=== PATIENT | female | born 1975 | race Caucasian/White ===

== ENCOUNTER 2017-08-31 08:36 | Outpatient (CLI) | payer OTHER | END 2017-08-31 09:30 | disposition home or self-care (01) | LOC: LAB 08:36 | DX: R59.1 Generalized enlarged lymph nodes (principal); E04.8 Other specified nontoxic goiter; Z12.39 Encounter for other screening for malignant neoplasm of breast; Z80.3 Family history of malignant neoplasm of breast; D50.8 Other iron deficiency anemias; D51.8 Other vitamin B12 deficiency anemias; I10 Essential (primary) hypertension; D51.0 Vitamin B12 deficiency anemia due to intrinsic factor deficiency; D51.1 Vitamin B12 deficiency anemia due to selective vitamin B12 malabsorption with proteinuria; E03.8 Other specified hypothyroidism; E06.3 Autoimmune thyroiditis; R97.0 Elevated carcinoembryonic antigen [CEA]; R97.8 Other abnormal tumor markers; B20 Human immunodeficiency virus [HIV] disease; B18.8 Other chronic viral hepatitis; B27.89 Other infectious mononucleosis with other complication; N63.11 Unspecified lump in the right breast, upper outer quadrant; N63.12 Unspecified lump in the right breast, upper inner quadrant ==

== ENCOUNTER 2017-10-26 10:41 | Outpatient (CLI) | payer OTHER | END 2017-10-26 10:50 | disposition home or self-care (01) | LOC: SONOGRAMA 10:41 | DX: E04.2 Nontoxic multinodular goiter (principal) ==

== ENCOUNTER 2018-02-17 09:08 | Outpatient (CLI) | payer OTHER | END 2018-02-17 09:31 | disposition home or self-care (01) | LOC: LAB 09:08 | DX: D51.1 Vitamin B12 deficiency anemia due to selective vitamin B12 malabsorption with proteinuria (principal); R59.1 Generalized enlarged lymph nodes; E06.3 Autoimmune thyroiditis; Z12.39 Encounter for other screening for malignant neoplasm of breast; E04.2 Nontoxic multinodular goiter; Z80.3 Family history of malignant neoplasm of breast; E03.8 Other specified hypothyroidism; D50.8 Other iron deficiency anemias; D51.8 Other vitamin B12 deficiency anemias ==

== ENCOUNTER → 2018-05-28 | Outpatient (CLI) | payer OTHER | END | disposition home or self-care (01) | LOC: NUCLEAR 05-21 11:15 | DX: I73.9 Peripheral vascular disease, unspecified (principal); I70.213 Atherosclerosis of native arteries of extremities with intermittent claudication, bilateral legs; D51.1 Vitamin B12 deficiency anemia due to selective vitamin B12 malabsorption with proteinuria; R59.1 Generalized enlarged lymph nodes ==

== ENCOUNTER 2018-06-06 09:04 | Outpatient (CLI) | payer OTHER | END 2018-06-06 09:06 | disposition home or self-care (01) | LOC: SONOGRAMA 09:04 | DX: D51.1 Vitamin B12 deficiency anemia due to selective vitamin B12 malabsorption with proteinuria (principal); R59.1 Generalized enlarged lymph nodes; E06.3 Autoimmune thyroiditis; Z12.39 Encounter for other screening for malignant neoplasm of breast; E04.2 Nontoxic multinodular goiter; Z80.3 Family history of malignant neoplasm of breast; E03.8 Other specified hypothyroidism; K29.70 Gastritis, unspecified, without bleeding; I73.89 Other specified peripheral vascular diseases; I70.213 Atherosclerosis of native arteries of extremities with intermittent claudication, bilateral legs ==

== ENCOUNTER → 2018-06-06 | Outpatient (CLI) | payer OTHER | END | disposition home or self-care (01) | LOC: NUCLEAR 10:05 | DX: I87.2 Venous insufficiency (chronic) (peripheral) (principal); I73.9 Peripheral vascular disease, unspecified; I70.213 Atherosclerosis of native arteries of extremities with intermittent claudication, bilateral legs; D51.1 Vitamin B12 deficiency anemia due to selective vitamin B12 malabsorption with proteinuria; R59.1 Generalized enlarged lymph nodes ==

== ENCOUNTER → 2018-06-14 | Outpatient (CLI) | payer OTHER | END | disposition home or self-care (01) | LOC: SONOGRAMA 12:30 | DX: E04.2 Nontoxic multinodular goiter (principal) ==

== ENCOUNTER 2018-07-04 08:34 | Outpatient (CLI) | payer OTHER | END 2018-07-04 11:32 | disposition home or self-care (01) | LOC: LAB 08:34 | DX: E03.8 Other specified hypothyroidism (principal); D51.1 Vitamin B12 deficiency anemia due to selective vitamin B12 malabsorption with proteinuria; R59.1 Generalized enlarged lymph nodes; E06.3 Autoimmune thyroiditis; Z12.39 Encounter for other screening for malignant neoplasm of breast; E04.2 Nontoxic multinodular goiter; Z80.3 Family history of malignant neoplasm of breast; K29.70 Gastritis, unspecified, without bleeding; I73.89 Other specified peripheral vascular diseases; I70.213 Atherosclerosis of native arteries of extremities with intermittent claudication, bilateral legs; D50.8 Other iron deficiency anemias; D51.8 Other vitamin B12 deficiency anemias; I10 Essential (primary) hypertension ==

== ENCOUNTER 2018-10-12 08:28 | Outpatient (CLI) | payer OTHER | END 2018-10-12 08:38 | disposition home or self-care (01) | LOC: LAB 08:28 | DX: R59.1 Generalized enlarged lymph nodes (principal); E06.3 Autoimmune thyroiditis; Z12.39 Encounter for other screening for malignant neoplasm of breast; E04.2 Nontoxic multinodular goiter; Z80.3 Family history of malignant neoplasm of breast; E03.8 Other specified hypothyroidism; K29.70 Gastritis, unspecified, without bleeding; I73.89 Other specified peripheral vascular diseases; I70.213 Atherosclerosis of native arteries of extremities with intermittent claudication, bilateral legs; D47.2 Monoclonal gammopathy ==

== ENCOUNTER 2019-02-27 08:33 | Outpatient (CLI) | payer OTHER | END 2019-02-27 15:00 | disposition home or self-care (01) | LOC: LAB 08:33 | DX: E78.2 Mixed hyperlipidemia (principal); E04.8 Other specified nontoxic goiter; E11.9 Type 2 diabetes mellitus without complications; D51.1 Vitamin B12 deficiency anemia due to selective vitamin B12 malabsorption with proteinuria; R59.1 Generalized enlarged lymph nodes; E06.3 Autoimmune thyroiditis; Z12.39 Encounter for other screening for malignant neoplasm of breast; E04.2 Nontoxic multinodular goiter; Z80.3 Family history of malignant neoplasm of breast; E03.8 Other specified hypothyroidism; K29.70 Gastritis, unspecified, without bleeding; I73.89 Other specified peripheral vascular diseases; I70.213 Atherosclerosis of native arteries of extremities with intermittent claudication, bilateral legs ==

== ENCOUNTER 2019-02-27 09:50 | Outpatient (CLI) | payer OTHER | END 2019-02-27 09:54 | disposition home or self-care (01) | LOC: SONOGRAMA 09:50 → MAMO-SONO 13:15 | DX: D51.1 Vitamin B12 deficiency anemia due to selective vitamin B12 malabsorption with proteinuria (principal); D89.0 Polyclonal hypergammaglobulinemia; R59.1 Generalized enlarged lymph nodes; E06.3 Autoimmune thyroiditis; Z12.39 Encounter for other screening for malignant neoplasm of breast; E04.2 Nontoxic multinodular goiter; Z80.3 Family history of malignant neoplasm of breast; E03.8 Other specified hypothyroidism; K29.70 Gastritis, unspecified, without bleeding; I73.89 Other specified peripheral vascular diseases; I70.213 Atherosclerosis of native arteries of extremities with intermittent claudication, bilateral legs ==

== ENCOUNTER 2019-06-05 11:33 | Outpatient (CLI) | payer OTHER | END 2019-06-05 11:46 | disposition home or self-care (01) | LOC: MAMO-SONO 11:33 | DX: Z12.31 Encounter for screening mammogram for malignant neoplasm of breast (principal); Z87.898 Personal history of other specified conditions; R10.2 Pelvic and perineal pain; N64.4 Mastodynia; N63.10 Unspecified lump in the right breast, unspecified quadrant; N63.20 Unspecified lump in the left breast, unspecified quadrant ==

== ENCOUNTER 2019-07-09 08:58 | Outpatient (CLI) | payer OTHER | END 2019-07-09 09:27 | disposition home or self-care (01) | LOC: LAB 08:58 | PROVIDERS: ATTEND Internal Medicine Hematology & Oncology | DX: D50.8 Other iron deficiency anemias (principal); I10 Essential (primary) hypertension; D47.2 Monoclonal gammopathy; C90.00 Multiple myeloma not having achieved remission; R59.1 Generalized enlarged lymph nodes; E06.3 Autoimmune thyroiditis; Z12.39 Encounter for other screening for malignant neoplasm of breast; E04.2 Nontoxic multinodular goiter; Z80.3 Family history of malignant neoplasm of breast; E03.8 Other specified hypothyroidism; K29.70 Gastritis, unspecified, without bleeding; I73.89 Other specified peripheral vascular diseases; I70.213 Atherosclerosis of native arteries of extremities with intermittent claudication, bilateral legs; E53.8 Deficiency of other specified B group vitamins; E04.8 Other specified nontoxic goiter ==

== ENCOUNTER 2020-01-07 14:18 | Outpatient (CLI) | payer OTHER | END 2020-01-07 14:33 | disposition home or self-care (01) | LOC: MAMO-SONO 14:18 | PROVIDERS: ATTEND Obstetrics & Gynecology | DX: R92.2 Inconclusive mammogram (principal); N60.02 Solitary cyst of left breast; N60.01 Solitary cyst of right breast ==

== ENCOUNTER 2020-10-19 11:35 | Outpatient (CLI) | payer OTHER | END 2020-10-19 11:43 | disposition home or self-care (01) | LOC: SONOGRAMA 11:35 | PROVIDERS: ATTEND General Practice | DX: E04.2 Nontoxic multinodular goiter (principal); E06.3 Autoimmune thyroiditis; E55.9 Vitamin D deficiency, unspecified; E56.8 Deficiency of other vitamins; R73.01 Impaired fasting glucose; Z13.1 Encounter for screening for diabetes mellitus ==